=== PATIENT | male | born 1935 ===

== ENCOUNTER 2017-11-15 07:18 | Emergency (ER) | payer MEDICARE, OTHER ==
--- NOTE | 2017-11-15 07:27 | UC ---
Epistaxis Nasal HPI - HPI Summary HPI Summary: 82 yo male with left nare bleed x 2 hours not applying pressure on 2 baby asa a day no hx excessive bleeding/bruising no URI - History of Current Complaint Chief Complaint: UCGeneralIllness Stated Complaint: NOSE BLEED Time Seen by Provider: 11/15/17 07:27 Hx Obtained From: Patient Onset/Duration: Sudden Onset, Lasting Hours Timing: Constant Severity Initially: Moderate Severity Currently: Moderate Pain Intensity: 0 Pain Scale Used: 0-10 Numeric Character: Heavy Aggravating Factor(s): Nothing Alleviating Factor(s): Nothing Associated Signs And Symptoms: Negative: Bruising, Hematuria, Hematochezia, Sinus Pain, Nasal Discharge, Recent Abnormal Coagulation Studies, Foreign Body Related Hx: ASA - Allergies/Home Medications Allergies/Adverse Reactions: Allergies Allergy/AdvReac Type Severity Reaction Status Date / Time No Known Allergies Allergy Verified 11/15/17 07:26 Home Medications: Home Medications Aspirin EC Low Dose* [Ecotrin EC Low Dose 81 MG*] 162 mg PO DAILY 11/15/17 [ History Confirmed 11/15/17] Multivitamin [Multivitamins] 1 cap PO DAILY 11/15/17 [History Confirmed 11/15/17 ] [place]-3S/Dha/Epa/Fish Oil [Fish Oil 1,200 mg Softgel] 1 each PO DAILY 11/15/17 [ History Confirmed 11/15/17] PMH/Surg Hx/FS Hx/Imm Hx Previously Healthy: Yes - Surgical History Surgical History: None - Family History Known Family History: Positive: Hypertension - Social History Alcohol Use: Rare Substance Use Type: None Smoking Status (MU): Never Smoked Tobacco Review of Systems Constitutional: Negative Skin: Negative Eyes: Negative ENT: Epistaxis Respiratory: Negative Cardiovascular: Negative Gastrointestinal: Negative Genitourinary: Negative Motor: Negative Neurovascular: Negative Musculoskeletal: Negative Neurological: Negative Psychological: Negative Is Patient Immunocompromised?: No All Other Systems Reviewed And Are Negative: Yes Physical Exam Triage Information Reviewed: Yes Appearance: Well-Appearing, No Pain Distress, Well-Nourished Vital Signs: Initial Vital Signs Temp 98.9 F 11/15/17 07:21 Pulse 100 11/15/17 07:21 Resp 16 11/15/17 07:21 BP 180/89 11/15/17 07:21 Pulse Ox 99 11/15/17 07:21 Vital Signs Reviewed: Yes Eyes: Positive: Conjunctiva Clear ENT: Positive: Pharynx normal, Uvula midline, Other - bleeding L>R nares. Negative: Normal ENT inspection, Hearing grossly normal, Muffled voice, Hoarse voice, Dental tenderness Neck: Positive: Supple, Nontender Respiratory: Positive: Lungs clear, Normal breath sounds, No respiratory distress Cardiovascular: Positive: RRR, No Murmur Musculoskeletal: Positive: ROM Intact, No Edema Neurological: Positive: Alert, Muscle Tone Normal Psychological Exam: Normal Skin Exam: Normal Epistaxis Nasal Course/Dx - Course Course Of Treatment: bleeding stopped with pressure. clot removed. neosynephrine 2 sprays each nostril administer by me. pt refuses cautery and/ or packing at this point. he and daugher aware he may rebleed - Differential Dx/Diagnosis Provider Diagnoses: epistaxis Discharge - Discharge Plan Condition: Stable Disposition: HOME Patient Education Materials: Nosebleed (ED) Referrals: Mike Nicole DO [Primary Care Provider] - 4 Days (recheck nose and BP) Additional Instructions: take it easy for 24 hours neosynephrine 2 sprays each nostril 3x day for 3 days if re-bleeding occurs apply pressure for 15-20 minutes before checking NASALCEASE available OTC at [facility]
[2017-11-15] MEDS ORDERED: Phenylephrine 1% NASAL* 15 ML BOT BOTH NARES ONE (07:38)
[2017-11-15 08:54] VITALS: BP 171/86
== END 2017-11-15 08:56 | disposition home or self-care (01) ==
LOC: UCEAST 07:18
DX: R04.0 Epistaxis (principal); Z79.82 Long term (current) use of aspirin
CPT/HCPCS: 30901; 99212; A9270-GY; G0463